=== PATIENT | female | born 1995 | race Two or more races ===

== ENCOUNTER 2019-05-29 19:29 | Emergency (ER) | payer MEDICAID ==
[~2019-05-29] VITALS: Ht 149.9 cm; Wt 71.7 kg
[2019-05-29 20:02] VITALS: BP 136/86
== END 2019-05-29 21:30 | disposition left against medical advice (07) ==
LOC: ER 19:33
DX: J02.9 Acute pharyngitis, unspecified (principal); Z53.21 Procedure and treatment not carried out due to patient leaving prior to being seen by health care provider